=== PATIENT | female | born 1955 | race Caucasian/White ===

== ENCOUNTER → 2017-04-28 | Outpatient (CLI) | payer BC ==
[~2017-04-28] MED LIST: REGADENOSON 0.4 MG/5 ML SYRINGE IV ONE
--- NOTE | 2017-04-28 11:23 | NM ---
EXAMINATION TYPE: NM stress lexiscan cardiolite DATE OF EXAM: 04/28/2017 COMPARISON: NONE HISTORY: Family history ischemic heart disease, Z 82.49 TECHNIQUE: After the intravenous administration of 11.0 mCi Tc 99m Sestamibi - Cardiolite resting SP ECT images acquired 45 minutes post injection. The patient received 0.4mg Lexiscan, 27.4 mCi Tc 99m Sestamibi - Stress images obtained [address] injection FINDINGS: Review of stress and rest SPECT images demonstrates no distinct perfusion abnormality. Gated analysi s shows questionable apical paradoxical wall motion with an estimated left ventricular ejection fract ion of 52 %. IMPRESSION: No scintigraphic evidence for reversible ischemia. Echocardiographic correlation for wall motion may be of benefit.
--- NOTE | 2017-04-29 08:44 | EST ---
EXERCISE STRESS DATE OF SERVICE: 04/28/16. INDICATION: Family history of premature coronary artery disease. AGE: 61 SEX: Female HT: 5 feet 2 inches WT: 155 lbs. PROTOCOL: Lexiscan Cardiolite. STAGE: DURATION OF EXERCISE: HEART RATE REST: 86 BLOOD PRESSURE REST: 163/80 MAXIMUM HEART RATE ACHIEVED: 98 MAXIMUM BLOOD PRESSURE: 178/103 85% MPHR: 100% MPHR: METS: INDICATIONS: Family history. Baseline EKG shows sinus rhythm, extensive nonspecific ST-T wave changes in the inferolateral leads. The patient was given intravenous Lexiscan as per protocol. Did not have chest pain. There was worsening of the baseline ST-T wave changes noted. CONCLUSIONS: 1. Inconclusive EKG part of the stress test due to baseline EKG abnormalities. 2. Cardiolite portion of the stress test will be reported separately. MMJANINEL / IJN: [id number] /
== END | disposition home or self-care (01) ==
LOC: RADNMMAIN 08:10
PROVIDERS: ATTEND Family Medicine
DX: R07.89 Other chest pain (principal)
CPT/HCPCS: 93017; 78452; A9500; J2785